=== PATIENT | male | born 1935 | race American Indian/Alaskan Native ===

== ENCOUNTER 2017-06-04 15:56 | Emergency (ER) | payer SELFPAY ==
[2017-06-04 16:17] VITALS: BP 128/52
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
== END 2017-06-04 20:43 | disposition home or self-care (01) ==
LOC: ED 15:56
DX: F03.90 Unspecified dementia, unspecified severity, without behavioral disturbance, psychotic disturbance, mood disturbance, and anxiety (principal); R51 Headache; W18.30XA Fall on same level, unspecified, initial encounter; Y93.9 Activity, unspecified; Y92.9 Unspecified place or not applicable; Y99.9 Unspecified external cause status; J45.909 Unspecified asthma, uncomplicated
CPT/HCPCS: 70450; 72125; 99283